=== PATIENT | female | born 1990 ===

== ENCOUNTER 2017-11-11 13:11 | Emergency (ER) | payer MEDICAID ==
[2017-11-11 13:11] VITALS: BMI 27.8
[2017-11-11 13:35] VITALS: O2SAT 100
[2017-11-11] MEDS ORDERED: Sodium Chloride 0.9% 1,000 ML IV ONE (14:00)
--- NOTE | 2017-11-11 14:07 | C.PDOC ---
History Of Present Illness 27 y/o female, , presents to the ER for a 2 day history of flank pain and a 1 day history of nonproductive cough associated with fever. Her LMP was on 09/09. Patient reports that she did not have an US today. Patient denies abdominal pain, vaginal bleeding and vaginal discharge.Patient denies sick contacts and recent travel. Time Seen by Provider: 11/11/17 13:52 Chief Complaint (Nursing): Fever History Per: Patient History/Exam Limitations: no limitations Onset/Duration Of Symptoms: Days Current Symptoms Are (Timing): Still Present Severity: Moderate Past Medical History Reviewed: Historical Data, Nursing Documentation, Vital Signs Vital Signs: Last Vital Signs Temp 98.6 F 11/11/17 17:36 Pulse 100 H 11/11/17 17:36 Resp 18 11/11/17 17:36 BP 104/69 11/11/17 17:36 Pulse Ox 100 11/11/17 18:01 - Medical History PMH: No Chronic Diseases Surgical History: No Surg Hx - [facility] Procedures DELIVERY OF PRODUCTS OF CONCEPTION, EXTERNAL APPROACH (01/27/16) REPAIR PERINEUM SKIN, EXTERNAL APPROACH (01/27/16) Family History: States: No Known Family Hx - Social History Hx Tobacco Use: No Hx Alcohol Use: No Hx Substance Use: No - Immunization History Hx Tetanus Toxoid Vaccination: No Hx Influenza Vaccination: No Hx Pneumococcal Vaccination: No Review Of Systems Constitutional: Positive for: Fever. Negative for: Chills Respiratory: Positive for: Cough Musculoskeletal: Positive for: Other (flank pain) Physical Exam - Physical Exam Appears: Non-toxic, No Acute Distress Skin: Normal Color, Warm Head: Atraumatic, Normacephalic Eye(s): bilateral: Normal Inspection Nose: Normal Oral Mucosa: Moist Neck: Supple Chest: Symmetrical Cardiovascular: Rhythm Regular Respiratory: Normal Breath Sounds, No Accessory Muscle Use, No Rhonchi, No Wheezing Back: CVA Tenderness (left-sided CVA tenderness) Extremity: Normal ROM Neurological/Psych: Oriented x3, Normal Speech, Normal Motor, Normal Sensation Additional Physical Exam Comments: fever in ED Course And Treatment - Laboratory Results Result Diagrams: 11/11/17 14:24 11/11/17 14:24 O2 Sat by Pulse Oximetry: 100 (RA) Pulse Ox Interpretation: Normal - Other Rad CXR X-Ray: Viewed By Me, Read By Radiologist Interpretation: Chest x-ray single frontal view. History: Cough and fever. Comparison: None available. Findings: Mild diffuse increased interstitial lung markings which may represent mild infiltrate. Clinical correlation. No focal effusion. Heart size within normal limits. Impression: Mild diffuse increased interstitial lung markings which may represent mild infiltrate. Clinical correlation. - CT Scan/US Transvaginal US Other Rad Studies (CT/US): Read By Radiologist CT/US Interpretation: Pelvic ultrasound. History: Fever and . Comparison: None available. Technique: Real-time sonography was performed through the pelvis. Findings: Positive test. Uterus: 11.7 x 7.8 x 8.4 centimeters. Heterogeneous echotexture. Anteverted. Cervix measures 3.7 centimeters. Intrauterine . Intrauterine gestational sac measures 3.4 centimeters corresponding to a gestational age of 8 weeks and 3 days. Yolk sac measures 3.3 millimeters. [place]-rump length measures 2.3 centimeters corresponding to a gestational age of 8 weeks and 4 days. heart rate of 176 beats per minute. No free fluid in the pelvic cul-de-sac. Right ovary: 3.9 x 3.1 x 3.6 centimeters. Normal flow. Free fluid by the right ovary. Left ovary: 2.9 x 1.4 x 3.9 centimeters. Normal flow. Impression: Single viable intrauterine corresponding to a gestational age of 8 weeks and 4 days by crown-rump length of 2.3 centimeters. heart rate of 176 beats per minute. Free fluid by the right ovary. Limited 1st trimester ultrasound for viability purposes only. Continued interval followup with serial ultrasound, serial HCG levels, and gynecological consultation would be helpful if clinically indicated. Progress Note: On re-evaluation, patient's temperature is 98.6 F.Patient feels better. CXR shows increased interstitial markings. Since the patient is , she has been prescribed Tamiflu and antibiotics for home. Patient has been advised to follow up with doctor in 2 days and return to ER if symptoms worsen. Medical Decision Making Medical Decision Making: Plan: --IV Fluids --Labs --POC Test --UA --Transvaginal US Disposition Counseled Patient/Family Regarding: Studies Performed, Diagnosis, Need For Followup, Rx Given - Disposition Referrals: Breanna Woo MD [Medical Doctor] - Disposition: HOME/ ROUTINE Disposition Time: 17:32 Condition: IMPROVED Additional Instructions: follow up with your doctor in 2 days call to make an appointment take medications as prescribed tylenol for fever drink plenty of fluids return to ER if symptoms worsens or progress Prescriptions: Azithromycin [Zithromax] 250 mg PO DAILY #4 tab Oseltamivir [Tamiflu] 75 mg PO BID #10 cap Instructions: Flu, Acute Bronchitis Forms: Gen Discharge Inst [place]i, [facility] (Y[place]i) Print Language: AMERICAN - Clinical Impression Clinical Impression: Fever, Influenza-like illness, Bronchitis - Scribe Statement The provider has reviewed the documentation as recorded by the Kymberly Hdz Provider Attestation: All medical record entries made by the Kymberly were at my direction and personally dictated by me. I have reviewed the chart and agree that the record accurately reflects my personal performance of the history, physical exam, medical decision making, and the department course for this patient. I have also personally directed, reviewed, and agree with the discharge instructions and disposition.
[2017-11-11 14:29] LABS: BASO % 0.3 % (0.0-2.0); EOS % 0.1 % (0.0-4.0); HEMOGLOBIN 12.6 g/dL (11.0-16.0); LYMPH # 0.3 K/uL (1.0-4.3); MEAN CELL VOLUME 85.7 fL (81.0-99.0); MEAN CORPUSCULAR HEMOGLOBIN 29.4 pg (27.0-31.0); MEAN CORPUSCULAR HGB CONC 34.3 g/dL (33.0-37.0); MEAN PLATELET VOLUME 9.4 fL (7.2-11.7); MONO # 0.5 K/uL (0.0-0.8); MONO % 6.5 % (0.0-10.0); NEUT # 7.1 K/uL (1.8-7.0); NEUT % 89.1 % (50.0-75.0); PLATELET COUNT 213 K/uL (130-400); RBC 4.29 Mil/uL (3.80-5.20); RED CELL DISTRIBUTION WIDTH 13.1 % (11.5-14.5)
[2017-11-11 14:32] LABS: SQUAMOUS EPITHIAL < 1 /hpf (0-5); URINE BILIRUBIN NEGATIVE (NEGATIVE); URINE BLOOD NEGATIVE (NEGATIVE); URINE CLARITY Hazy (Clear); URINE COLOR Yellow (YELLOW); URINE GLUCOSE (UA) 1+ mg/dL (Normal); URINE LEUKOCYTE ESTERASE NEG Leu/uL (Negative); URINE NITRATE NEGATIVE (NEGATIVE); URINE PROTEIN NEGATIVE (NEGATIVE); URINE UROBILINOGEN NORMAL mg/dL (0.2-1.0)
[2017-11-11 14:39] LABS: ALB/GLOB RATIO 1.2 (1.0-2.1); ALBUMIN 4.4 g/dL (3.5-5.0); ALT/SGPT 30 U/L (9-52); AST/SGOT 24 U/L (14-36); BLOOD UREA NITROGEN 8 mg/dL (7-17); CALCIUM 8.7 mg/dl (8.6-10.4); GFR AFRICAN-AMERICAN > 60; GFR NON-AFRICAN AMERICAN > 60
[2017-11-11 14:50] LABS: BANDS 3 % (0-2); LYMPHOCYTE 3 % (20-40); MONOCYTE 4 % (0-10); NEUTROPHIL 90 % (50-75); TOTAL CELLS COUNTED 100
[2017-11-11 14:51] LABS: ANISOCYTOSIS SLIGHT; HYPOCHROMIC SLIGHT; PLATELET ESTIMATE NORMAL (NORMAL)
[2017-11-11 14:52] LABS: LARGE PLATELETS PRESENT
--- NOTE | 2017-11-11 15:51 | US ---
Pelvic ultrasound History: Fever and . Comparison: None available. Technique: Real-time sonography was performed through the pelvis. Findings: Positive test. Uterus: 11.7 x 7.8 x 8.4 centimeters. Heterogeneous echotexture. Anteverted. Cervix measures 3.7 centimeters. Intrauterine . Intrauterine gestational sac measures 3.4 centimeters corresponding to a gestational age of 8 weeks and 3 days. Yolk sac measures 3.3 millimeters. [place]-rump length measures 2.3 centimeters corresponding to a gestational age of 8 weeks and 4 days. heart rate of 176 beats per minute. No free fluid in the pelvic cul-de-sac. Right ovary: 3.9 x 3.1 x 3.6 centimeters. Normal flow. Free fluid by the right ovary. Left ovary: 2.9 x 1.4 x 3.9 centimeters. Normal flow. Impression: Single viable intrauterine corresponding to a gestational age of 8 weeks and 4 days by crown-rump length of 2.3 centimeters. heart rate of 176 beats per minute. Free fluid by the right ovary. Limited 1st trimester ultrasound for viability purposes only. Continued interval followup with serial ultrasound, serial HCG levels, and gynecological consultation would be helpful if clinically indicated.
--- NOTE | 2017-11-11 17:30 | RAD ---
Chest x-ray single frontal view History: Cough and fever. Comparison: None available. Findings: Mild diffuse increased interstitial lung markings which may represent mild infiltrate. Clinical correlation. No focal effusion. Heart size within normal limits. Impression: Mild diffuse increased interstitial lung markings which may represent mild infiltrate. Clinical correlation.
[2017-11-11 17:36] VITALS: BP 104/69; PULSE 100; RESP 18; TEMP 98.6
== END 2017-11-11 17:54 | disposition home or self-care (01) ==
LOC: C.ER 13:11
DX: O26.891 Other specified pregnancy related conditions, first trimester (principal); Z3A.08 8 weeks gestation of pregnancy; J11.1 Influenza due to unidentified influenza virus with other respiratory manifestations; J40 Bronchitis, not specified as acute or chronic
CPT/HCPCS: 71045; 76801; 80053; 81001; 84702; 85025; 87086; 87491; 87591; 96360; 99284; J7040

== ENCOUNTER 2018-06-20 19:47 | Inpatient (IN) | payer MEDICAID, OTHER ==
[2018-06-20 20:12] VITALS: BMI 33.2
[2018-06-20] MEDS: Lactated Ringer's 1,000 ML IV SCH (20:20)
--- NOTE | 2018-06-20 20:42 | OBADHP ---
Datetime: 06/20/2018 20:39 Admit Comment, IP Provider: at 40=weks here for induction of labor, o ctxs, vb , lof+fdn obhx 1 x pmh de med pnv all nkda psh de mya d ve closed gbs neg a/p at 40+weks induction of labor admit to l_d npo/ivf labs pain magement conyt barney and efm anticipate Pelvic Type - PN: Adequate Extremities - PN: Normal Abdomen - PN: Normal Back - PN: Normal Breast - PN: Normal Lungs - PN: Normal Heart - PN: Normal Thyroid - PN: Normal Neurologic - PN: Normal HEENT - PN: Normal General - PN: Normal FHR - Baseline A Provider: 130 Contraction Comments Provider: occ IP Hx Assessment: The History has been Reviewed and is Current Vital Signs Provider: Reviewed; Within Normal Limits IP Chief Complaint: Scheduled induction of labor NICHD Variability Prov Fetus A: Moderate 6-25bpm NICHD Accel Fetus A IP Provider: 15X15 FHR Category Provider Fetus A: Category I Dilatation, Provider: ft Effacement, Provider: 50 Station, Provider: -3 Genitourinary Exam: Normal DTRs - PN: Normal EGA AdmitDate IP: 40.4 IP Adm Impression: Term, intrauterine ; No Active Labor IP Admit Plan: Admit to unit; Initiate labor induction protocol
[2018-06-20] MEDS ORDERED: Nalbuphine HCL 10 mg/ml Ampule IVP PRN (20:44)
[2018-06-20 21:15] LABS: BASO % 0.3 % (0.0-2.0); EOS # 0.2 K/uL (0.0-0.7); EOS % 1.4 % (0.0-4.0); HEMOGLOBIN 11.3 g/dL (11.0-16.0); LYMPH % 16.9 % (20.0-40.0); MEAN CELL VOLUME 84.9 fL (81.0-99.0); MEAN CORPUSCULAR HEMOGLOBIN 28.3 pg (27.0-31.0); MEAN CORPUSCULAR HGB CONC 33.4 g/dL (33.0-37.0); MEAN PLATELET VOLUME 10.1 fL (7.2-11.7); MONO # 0.6 K/uL (0.0-0.8); MONO % 5.3 % (0.0-10.0); NEUT % 76.1 % (50.0-75.0); RBC 3.98 Mil/uL (3.80-5.20); RED CELL DISTRIBUTION WIDTH 15.6 % (11.5-14.5); WHITE BLOOD COUNT 11.9 K/uL (4.8-10.8)
[2018-06-20 21:21] LABS: SQUAMOUS EPITHIAL 14 /hpf (0-5); URINE BILIRUBIN NEGATIVE (NEGATIVE); URINE BLOOD NEGATIVE (NEGATIVE); URINE CLARITY Clear (Clear); URINE COLOR Yellow (YELLOW); URINE GLUCOSE (UA) NORMAL (Normal); URINE LEUKOCYTE ESTERASE TRACE Leu/uL (Negative); URINE PROTEIN NEGATIVE (NEGATIVE); URINE UROBILINOGEN NORMAL mg/dL (0.2-1.0)
[2018-06-20 21:27] LABS: BLOOD UREA NITROGEN 11 mg/dL (7-17); GFR NON-AFRICAN AMERICAN > 60
[2018-06-21] MEDS: Lactated Ringer's 1,000 ML IV SCH ×3 (02:00→13:00)
[2018-06-21] MEDS ORDERED: Oxytocin 30 UNIT 30 UNITS/500 ML BAG IV ONE (16:52)
[2018-06-21] MEDS ORDERED: Oxycodone/Acetaminophen 5/325 mg Tab PO PRN (20:12)
--- NOTE | 2018-06-21 21:34 | OBPN ---
Datetime: 06/21/2018 11:42 IP Progress Impression Other: Prolonged latent phase of labor IP Procedures: Sterile Vag Exam IP Progress Plan: Continue present management; Cervical Ripening; Anticipate Vaginal Delivery Membranes, Provider: Intact Contraction Comments Provider: irregular, 2-6 minutes FHR - Baseline A Provider: 135 Gestation - Est Wks by US: 40w 5d Presentation-Admit: Vertex IP Progress Note Comment: Patient evaluated at apporximately 1120 hours: received in LDR#4 in good s pirits. (+) Ctx, pain scale 5/10; (+) AFM; denies LOF, VB Cervical exam as above. Assessment: 28 y.o. P1, 40w 5d, IOL; S/P cervidil x 1 - good response. Category 1 tracing. D/W pat ient, continued maneuvers re: cervical ripening. Not interested inpain meds. Clinically stable. Plan: 1) Cytotec 25 micrograms pV now 2) Continue present maangement 3) Anticipte vaginal delivery Vital Signs Provider: Reviewed; Within Normal Limits NICHD Accel Fetus A IP Provider: 15X15 FHR Category Provider Fetus A: Category I NICHD Variability Prov Fetus A: Moderate 6-25bpm Dilatation, Provider: 4 Effacement, Provider: 50 Station, Provider: -3 NICHD Decel Fetus A IP Provider: None
--- NOTE | 2018-06-21 21:34 | OBDS ---
DELIVERY PERSONNEL Delivery Doctor: Roberto Aguilar MD Juice Weigher: Duyen Pantoja RN MATERNAL INFORMATION Delivery Anesthesia: None Medications in Delivery: pitocin 20 units Estimated Blood Loss (ml): 400 Placenta Cultured: No Maternal Complications: None RN Comments: to a live baby boy with 9/9 Provider Comments: Unremarkable spontaneous vaginal delivery of llive male , ALEX position. Inf ant's mouth and nose bulb-sucitoned. Umbilical cord doubly clamped and cut. Spontaneous delivery of p lacenta - grossly intact; 3 vessel cord. Cervix, vagnia, perineum inspected - laceration as above; repair as above. Mother and infant bonding; both in stable condition EBL 400 mL 's 9/9 Weight 7lb 15 oz LABOR SUMMARY EDC: 06/16/2018 00:00 No. Babies in Womb: 1 Attempted: No Labor Anesthesia: None LABOR INFORMATION Reason for Induction: Other Cervical Ripening Agents: Cervidil; Cytotec @ Oxytocin: Augmentation Group B Beta Strep: Negative (Annotations: 05/14/2018) Steroids Given: None Reason Steroids Not Administered: Not Applicable MEM[facility]ANES Membranes Rupture Method: Artificial Rupture of Membranes: 06/21/2018 16:15 Length of Rupture (hrs): 2.87 Amniotic Fluid Color: Clear Amniotic Fluid Amount: Moderate Amniotic Fluid Odor: Normal STAGES OF LABOR Stage 3 hrs: 0 Stage 3 min: 33 VAGINAL DELIVERY Episiotomy: None Laceration Extension: Second Degree Laceration Type: Perineal Laceration Repair: Yes Laceration Repair Note: 2-0 and 3-0 chromic - routine fasion. Hemostasis assured. Patient tolerated procedure well. Initial Vag Sponge Count: 10` Final Vag Sponge Count: 10 Initial Vag Sharps Count: 0 Final Vag Sharps Count: 2 Sponge Count Correct: Yes; Vaginal Sweep Performed Sharps Count Correct: Yes Count Comment: correct BABY A INFORMATION Delivery Date/Time: 06/21/2018 19:07 Method of Delivery: Vaginal Born in Route : No : N/A Forceps: N/A Vacuum Extraction: N/A Shoulder Dystocia : No SHOULDER DYSTOCIA BABY A Delivery Date/Time: 06/21/2018 19:07 PRESENTATION/POSITION BABY A Presentation: Cephalic Cephalic Presentation: Vertex Vertex Position: Right Occipital Anterior Breech Presentation: N/A PLACENTA INFORMATION BABY A Placenta Delivery Time : 06/21/2018 19:40 (Annotations: Data stored by [facility] on behalf of user) Placenta Method of Delivery: Expressed Placenta Status: Delivered SCORES BABY A Heart Rate 1 min: >100 bpm Resp Effort 1 min: Good Cry Reflex Irritability 1 min: Cough or Sneeze or Pulls Away Muscle Tone 1 min: Active Motion Color 1 min: Body [place], Extremities Blue SCORE 1 MIN: 9 Heart Rate 5 min: >100 bpm Resp Effort 5 min: Good Cry Reflex Irritability 5 min: Cough or Sneeze or Pulls Away Muscle Tone 5 min: Active Motion Color 5 min: Body [place], Extremities Blue SCORE 5 MIN: 9 INFANT INFORMATION BABY A Gestational Age at Delivery: 40.5 Gestational Status: Term Outcome : Liveborn Infant Condition : Stable Infant Sex: Male IDENTIFICATION/MEDS BABY A ID Band Number: [id number] ID Band Location: Left Leg; Left Arm Sensor Applied: Yes Sensor Number: [id number] Sensor Location : Cord Clamp Vitamin K Given : Aquamephyton 1 mg IM Erythromycin Given: Given Both Eyes WEIGHT/LENGTH BABY A Infant Birthweight (gms): 3610 Weight (lb): 7 Infant Weight (oz): 15 Length Inches: 20.00 Infant Length cms: 50.8 CORD INFORMATION BABY A No. Cord Vessels: 3 Nuchal Cord : N/A Cord Blood Taken: Yes Suction: Mouth ASSESSMENT BABY A Complications: None Physical Findings at Delivery: Within Normal Limits Infant Respirations: Appears Normal Load Out Worker/ALS Called : No Infant Care By: Dr. Duenas Transferred To: Remains with Mother
--- NOTE | 2018-06-21 21:34 | OBPN ---
Datetime: 06/21/2018 16:23 IP Progress Impression: Normal progression of labor IP Procedures: Artificial ROM; Sterile Vag Exam IP Progress Plan: Continue present management; Augmentation; Anticipate Vaginal Delivery Membranes, Provider: Ruptured Amniotic Fluid Color, Provider: Clear Contraction Comments Provider: irregular, 2 - 6 minutes FHR - Baseline A Provider: 135 Gestation - Est Wks by US: 40 w 5d Presentation-Admit: Vertex IP Progress Note Comment: Patient received; reports slightly increased pain of Ctx - pain sclae, 02/16 0 to 7/10. Declines epidural Cervical exam: as above. AROM performed; copious amount of clear amnioinc fouid obtained. Assessment: 28 y.o. P1, 40w 5d, IOL S/P cervidil and cyttec; now S/P AROM - entering active labor. Category 1 tracing. D/W patient will start pitocin. Patient agrees. Clinically stable. Plan: 1) Start pitocin 2) Anticipate vaginal delivery Vital Signs Provider: Reviewed; Within Normal Limits NICHD Accel Fetus A IP Provider: 15X15 FHR Category Provider Fetus A: Category I NICHD Variability Prov Fetus A: Moderate 6-25bpm Dilatation, Provider: 5 Effacement, Provider: 50 Station, Provider: -3 to -2 NICHD Decel Fetus A IP Provider: None
[2018-06-22] MEDS: Benzocaine/Menthol 20%-0.5% Topical Spray (60 ml) TOP PRN (00:13)
[2018-06-22 07:34] LABS: BASO % 0.2 % (0.0-2.0); EOS % 0.2 % (0.0-4.0); LYMPH # 1.9 K/uL (1.0-4.3); LYMPH % 10.9 % (20.0-40.0); MEAN CELL VOLUME 85.3 fL (81.0-99.0); MEAN CORPUSCULAR HEMOGLOBIN 28.7 pg (27.0-31.0); MEAN CORPUSCULAR HGB CONC 33.7 g/dL (33.0-37.0); MEAN PLATELET VOLUME 10.1 fL (7.2-11.7); MONO # 1.2 K/uL (0.0-0.8); MONO % 6.8 % (0.0-10.0); NEUT # 14.1 K/uL (1.8-7.0); NEUT % 81.9 % (50.0-75.0); RBC 3.04 Mil/uL (3.80-5.20); RED CELL DISTRIBUTION WIDTH 15.1 % (11.5-14.5); WHITE BLOOD COUNT 17.2 K/uL (4.8-10.8)
[2018-06-22 07:58] LABS: HEMOGLOBIN 8.7 g/dL (11.0-16.0)
[2018-06-22] MEDS ORDERED: Multiple Vitamins Tab PO SCH (10:00)
--- NOTE | 2018-06-22 11:31 | OBPPN ---
Datetime: 06/22/2018 09:45 PP Pain Prov: Within normal limits PP Nausea Prov: Denies PP Flatus Prov: Yes PP BM Prov: No PP Breasts Prov: Not Done PP Heart Prov: Normal PP Lungs Prov: Normal PP Abdomen/Uterus Prov: Normal PP Lochia Prov: Normal PP Vulva/Perineum Prov: Normal PP CVA Tenderness Prov: Not Done PP Extremities Prov: Not Done PP Impression Prov: Normal progression PP Plan Prov: Continue present management PP Progress Note Prov: patient is para 2, s/p day 1 with EBL 400cc Hb droped from 11.3 --> 8.7 will start iron TID and vit C BID denies PORTILLO, CP, SOB, mildly dizzy once this morning leukocytosis 17, no symptoms of infection, perineal laceration examined and healing appropriately will repeat CBC cont routine post care IP PP Procedures: None Vital Signs Provider PP: Reviewed
[2018-06-23 08:44] VITALS: RESP 18; O2SAT 98
[2018-06-23 08:46] LABS: HEMOGLOBIN 8.2 g/dL (11.0-16.0); RBC 2.85 Mil/uL (3.80-5.20); WHITE BLOOD COUNT 10.2 K/uL (4.8-10.8)
[2018-06-23 08:47] LABS: BASO % 0.4 % (0.0-2.0); EOS # 0.1 K/uL (0.0-0.7); EOS % 1.5 % (0.0-4.0); LYMPH # 2.3 K/uL (1.0-4.3); LYMPH % 22.4 % (20.0-40.0); MEAN CELL VOLUME 85.6 fL (81.0-99.0); MEAN CORPUSCULAR HEMOGLOBIN 28.8 pg (27.0-31.0); MEAN CORPUSCULAR HGB CONC 33.6 g/dL (33.0-37.0); MEAN PLATELET VOLUME 9.3 fL (7.2-11.7); MONO # 0.5 K/uL (0.0-0.8); MONO % 5.4 % (0.0-10.0); NEUT # 7.2 K/uL (1.8-7.0); NEUT % 70.3 % (50.0-75.0); NRBC % 0.1 % (0.0-2.0); RED CELL DISTRIBUTION WIDTH 15.7 % (11.5-14.5)
[2018-06-23] MEDS: Benzocaine/Menthol 20%-0.5% Topical Spray (60 ml) TOP PRN (09:24)
--- NOTE | 2018-06-23 09:29 | OBPPN ---
Datetime: 06/23/2018 09:25 PP Pain Prov: Within normal limits PP Nausea Prov: Denies PP Flatus Prov: Yes PP BM Prov: No PP Breasts Prov: Normal PP Heart Prov: Normal PP Lungs Prov: Normal PP Abdomen/Uterus Prov: Normal PP Lochia Prov: Normal PP Vulva/Perineum Prov: Normal PP CVA Tenderness Prov: Normal PP Extremities Prov: Normal PP C/S Incision Prov: Not Applicable PP Progress Prov: Normal PP Impression Prov: Normal progression PP Plan Prov: Continue present management; Discharge PP Progress Note Prov: pt seen adn examied and reprots pain rlq controlld with medicaion. pt ambuiat n,b odiign, passing flatus, tolerated regular diet. pt denies nay fever, chills, nause, vomiting cp, sob VSS PE GEN NAD AAO x 3 RESP: CTAB: CVS:RRR< +S1/S2 ABDS: soft, NT/ND, +BS, no gurding ,no rebound tendenress ,no rigidity, no uterine tenderss Inciscion C/?DI healign well VE: minimal lohcia, non foul smelling EXT; no calf tenderness, negative domenic's sign a/p s/p nsvdp ppd #2 , doign well dc home rto 6 weeks precuiaton give Vital Signs Provider PP: Reviewed; Within Normal Limits
--- NOTE | 2018-06-23 09:29 | OBDCSUM ---
Datetime: 06/23/2018 08:52 Discharged to, Provider: Home Follow up at, Provider: YOSELYN Disch Instr Activity: Normal activity; May be up to bathroom; May be up for meals; May Shower Disch Instr Diet: Regular Discharge Diet restrict Prov: none Discharge Instructions, Provider: Routine instructions given Discharge Diagnosis, Provider: Term Delivered Discharge Time: 06/23/2018 11:00 Follow up in weeks, Provider: 6 weeks Disch Referrals: None Contraception discussed, Prov: Yes Disch Activity Restrictions: No exercising; No lifting; No sexual activity; Nothing in vagina - Inte rcourse, tampons, douche Contraception after Delivery: Not Planning to Use
[2018-06-23 17:06] VITALS: BP 92/59; PULSE 96; TEMP 98.1
== END 2018-06-23 13:04 | disposition home or self-care (01) | DRG 560 ==
LOC: C.EROB 19:47 → C.4D 20:43 → C.4M 06-21 21:45
PROVIDERS: ADMIT Obstetrics & Gynecology; ATTEND Obstetrics & Gynecology
PROC: 3E0P7VZ Introduction of Hormone into Female Reproductive, Via Natural or Artificial Opening (ICD-10-PCS; principal; 2018-06-21)
PROC: 10E0XZZ Delivery of Products of Conception, External Approach (ICD-10-PCS; 2018-06-21)
PROC: 10907ZC Drainage of Amniotic Fluid, Therapeutic from Products of Conception, Via Natural or Artificial Opening (ICD-10-PCS; 2018-06-21)
PROC: 0KQM0ZZ Repair Perineum Muscle, Open Approach (ICD-10-PCS; 2018-06-21)
DX: O48.0 Post-term pregnancy (principal); O70.1 Second degree perineal laceration during delivery; Z3A.40 40 weeks gestation of pregnancy; Z37.0 Single live birth